=== PATIENT | male | born 1950 | race Caucasian/White ===

== ENCOUNTER 2016-06-24 22:48 | Observation (INO) | payer MEDICARE ==
[~2016-06-24] VITALS: Ht 175.3 cm; Wt 65.0 kg
[~2016-06-24 22:48] MED LIST: ADVAI250I PO; ALBU2.5I INH; ALBU8I INH; AMBI10TA PO; EPIP0.3I IM; FLON0.053; MEDR4PAK3 PO; OXYC10TA8 PO; SOMA350T PO; VENTAER INH; WELL150T PO; XANA1TAB6 PO
[2016-06-24 22:54] VITALS: BP 163/105; PULSE 129; RESP 30; TEMP 98.7; O2SAT 99
[2016-06-24] MEDS ORDERED: diphenhydrAMINE HCL 50 MG/ML VIAL ONE (22:56)
[2016-06-24] MEDS ORDERED: EPINEPHrine HCL (1:1000) 1 MG/ML VIAL ONE (22:56)
[2016-06-24] MEDS ORDERED: EPINEPHrine HCL (1:1000) 1 MG/ML VIAL IM ONE (23:00)
[2016-06-24] MEDS ORDERED: diphenhydrAMINE HCL 50 MG/ML VIAL IVP ONE (23:00)
[2016-06-24] MEDS ORDERED: SODIUM CHLORIDE 0.9% FLUSH 5 ML FLUSH IVF PRN ×2 (23:00)
[2016-06-24] MEDS ORDERED: RESP: ALBUTEROL 2.5 MG/IPRATROPIUM 0.5 MG NEB (SCH) INH ONE (23:00)
[2016-06-24] MEDS ORDERED: FAMOTIDINE 20 MG/2 ML VIAL IV PUSH ONE (23:00)
[2016-06-24 23:11] VITALS: O2SAT 98
[2016-06-24 23:24] LABS: BLOOD GAS BASE EXCESS -1.6 mmol/L (-2-2); BLOOD GAS CARBOXYHEMOGLOBIN 1.6 % (0-4); BLOOD GAS HCO3 24 mmol/L (22-26); BLOOD GAS O2 HGB SATURATION 95 % (90-100); BLOOD GAS OXYGEN CONTENT 19.9 Vol % (12.0-20.0); BLOOD GAS PCO2 48 mmHg (38-42); BLOOD GAS PO2 155 mmHG (61-120); BLOOD GAS TOTAL HGB 14.7 G/DL (12.0-16.0); TEMP CORR TO 98.6
[2016-06-24 23:25] LABS: AUTOMATED NEUTROPHIL # 4.1 TH/MM3 (1.8-7.7); BASOPHIL # 0.1 TH/MM3 (0-0.2); EOSINOPHIL # 1.6 TH/MM3 (0-0.4); EOSINOPHIL % 17.8 % (0.0-4.0); HEMO FLAGS DIFF FINAL; LYMPHOCYTE # 2.6 TH/MM3 (1.0-4.8); MEAN CELL VOLUME 97.4 FL (80.0-100.0); MEAN CORPUSCULAR HEMOGLOBIN 32.6 PG (27.0-34.0); MEAN CORPUSCULAR HGB CONC 33.5 % (32.0-36.0); MONO % 8.7 % (0.0-8.0); NEUT % 44.5 % (16.0-70.0); PLATELET COUNT 226 TH/MM3 (150-450); RED BLOOD COUNT 4.41 MIL/MM3 (4.50-5.90); RED CELL DISTRIBUTION WIDTH 12.8 % (11.6-17.2); WHITE BLOOD COUNT 9.1 TH/MM3 (4.0-11.0)
[2016-06-24 23:25] LABS: CRITICAL VALUE NO; DRAW SITE RT RADIAL; LITER FLOW 4 L/M; NUMBER OF ARTERIAL PUNCTURES 2; OXYGEN DEVICE NASAL CANNULA; STAT YES; ULNAR PULSE PRESENT
[2016-06-24 23:30] VITALS: O2SAT 100
--- NOTE | 2016-06-24 23:31 | RADRPT ---
EXAM DATE/TIME: 06/24/2016 22:59 [place] COMPARISON: CHEST SINGLE AP, July 30, 2015, 17:02. INDICATIONS : Shortness of breath. MEDICAL HISTORY : Hypertension. Chronic obstructive pulmonary disease. Asthma. SURGICAL HISTORY : None. ENCOUNTER: Initial ACUITY: 1 day PAIN SCORE: 0/10 LOCATION: Bilateral chest FINDINGS: A single view of the chest demonstrates the lungs to be symmetrically aerated without evidence of mas s, infiltrate or effusion. The cardiomediastinal contours are unremarkable. [place] right scapul a. Osseous structures are intact. CONCLUSION: No acute disease. Christian Montano MD on June 24, 2016 at 23:25 Board Certified Radiologist. This report was verified electronically.
[2016-06-24 23:33] LABS: APTT (PATIENT) 23.7 SEC (24.3-30.1); PROTHROMBIN TIME - PATIENT 11.2 SEC (9.8-11.6)
[2016-06-24 23:38] LABS: ANION GAP 9 MEQ/L (5-15); BICARBONATE 28.5 MEQ/L (21.0-32.0); BLOOD UREA NITROGEN 12 MG/DL (7-18); CHLORIDE 101 MEQ/L (98-107); GLOMERULAR FILTRATION RATE 66 ML/MIN (>89); SODIUM (NA) 138 MEQ/L (136-145)
[2016-06-24 23:42] LABS: CREATINE KINASE 112 U/L (39-308)
[2016-06-24 23:45] VITALS: O2SAT 97
[2016-06-24 23:46] VITALS: BP 116/88; PULSE 108; RESP 18; O2SAT 97
[2016-06-24 23:55] LABS: CKMB 3.5 NG/ML (0.5-3.6)
[2016-06-25] VITALS (13 sets, daily range): BP systolic 101–147; BP diastolic 73–86; PULSE 74–115; RESP 16–21; TEMP 97.8–98.8; O2SAT 93–98
--- NOTE | 2016-06-25 00:04 | PD ---
HPI Chief Complaint: Respiratory Distress Time Seen by Provider: 22:59 Travel History International Travel<30 days: No Contact w/Intl Traveler<30days: No Traveled to known affect area: No History of Present Illness HPI 66yo M with PMH of COPD presents to the ED with wheezing and in respiratory distress. [facility] had given solumedrol and albuterol neb x3. Pt is tachypneic and wheezing bilaterally. States it started immediately after the opossum came to his house and sprayed him. States he is allergic to them and was here on for similar complaint. Pt feels that his throat is closing but had no tongue swelling or uvula swelling on exam. He was diaphoretic and in distress but saturating at 99% on nebulizer treatment. Pt given epinephrine, diphenhydramine and famotidine since pt already received solumedrol. PFSH Past Medical History Asthma: Yes Anxiety: Yes Depression: Yes Cancer: No Cardiovascular Problems: Yes Congestive Heart Failure: No COPD: Yes Coronary Artery Disease: Yes Diabetes: No Endocrine: No Genitourinary: No Hypertension: Yes Immune Disorder: No Implanted Vascular Access Dvce: Yes Musculoskeletal: Yes Neurologic: No Psychiatric: Yes Respiratory: Yes Tetanus Vaccination: Unknown Past Surgical History Body Medical Devices: DELFINA IN LEFT LEG Other Surgery: Yes Social History Alcohol Use: Yes (beer) Tobacco Use: No (10 years ago quit) Substance Use: No Allergies-Medications (Allergen,Severity, Reaction): Coded Allergies: Penicillin (Verified Allergy, Mild, HIVES, 06/24/16) Reported Meds & Prescriptions Reported Meds & Active Scripts Active Reported Ventolin Hfa 18 GM Inh (Albuterol Sulfate) 90 Mcg/Act Aer 2 Puff INH Q4H PRN Albuterol Neb (Albuterol Sulfate) 2.5 Mg/3 Ml Neb 2.5 Mg NEB Q6HR While awake Ventolin Hfa 18 GM Inh (Albuterol Sulfate) 90 Mcg/Act Aer 2 Puff INH Q4H PRN Advair Diskus Inh (Fluticasone-Salmeterol Inh) 250-50 Mcg/Blist Aer 1 Puff INH BID Rinse mouth after use. Fluticasone Nasal [place] 50 Mcg/Act Naspr 100 Mcg EACH NARE BID 50 mcg/spray Trazodone (Trazodone HCl) 150 Mg Tab 150 Mg PO HS Flexeril (Cyclobenzaprine HCl) 5 Mg Tab 5 Mg PO TID Oxycodone (Oxycodone HCl) 10 Mg Tab 10 Mg PO Q4H PRN Montelukast (Montelukast Sodium) 10 Mg Tab 10 Mg PO HS Benazepril (Benazepril HCl) 20 Mg Tab 20 Mg PO DAILY Benzonatate 200 Mg Cap 200 Mg PO TID PRN Zolpidem (Zolpidem Tartrate) 10 Mg Tab 10 Mg PO HS PRN Xanax (Alprazolam) 1 Mg Tab 1 Mg PO QID PRN Bupropion HCl ER 24 HR (Bupropion HCl) 300 Mg Tab 300 Mg PO DAILY Review of Systems Except as stated in HPI: all other systems reviewed are Neg Physical Exam Narrative GENERAL: 66yo M in moderate distress. SKIN: Warm and dry. HEAD: Atraumatic. Normocephalic. EYES: Pupils equal and round. No scleral icterus. No injection or drainage. ENT: No tongue or uvula edema. Patent airway. NECK: Trachea midline. No JVD. CARDIOVASCULAR: Regular rate and rhythm. No murmur appreciated. RESPIRATORY: + accessory muscle use. Wheezing bilaterally diffusely. GASTROINTESTINAL: Abdomen soft, non-tender, nondistended. No rebound tenderness or guarding. MUSCULOSKELETAL: No obvious deformities. No clubbing. No cyanosis. No edema. NEUROLOGICAL: Awake and alert. No obvious cranial nerve deficits. Motor grossly within normal limits. Normal speech. PSYCHIATRIC: Appropriate mood and affect; insight and judgment normal. Data Data Last Documented VS Vital Signs Date Time Temp Pulse Resp B/P Pulse Ox O2 Delivery O2 Flow Rate FiO2 06/25/16 01:00 113 18 102/75 96 Nasal Cannula 2 06/24/16 22:54 98.7 Orders Complete Blood Count With Diff (06/24/16 22:59) Basic Metabolic Panel (Bmp) (06/24/16 22:59) Act Partial Throm Time (Ptt) (06/24/16 22:59) Prothrombin Time / Inr (Pt) (06/24/16 22:59) Ckmb (Isoenzyme) Profile (06/24/16 22:59) Troponin I (06/24/16 22:59) Arterial Blood Gas (Abg) (06/24/16 22:59) Iv Access Insert/Monitor (06/24/16 22:59) Electrocardiogram (06/24/16 22:59) Ecg Monitoring (06/24/16 22:59) Oximetry (06/24/16 22:59) Oxygen Administration (06/24/16 22:59) Chest, Single Ap (06/24/16 22:59) Sodium Chloride 0.9% Flush (Ns Flush) (06/24/16 23:00) Albuterol-Ipratropium Neb (Duoneb Neb) (06/24/16 23:00) Diphenhydramine Inj (Benadryl Inj) (06/24/16 23:00) Famotidine Inj (Pepcid Inj) (06/24/16 23:00) Sodium Chloride 0.9% Flush (Ns Flush) (06/24/16 23:00) Epinephrine (1:1000) Inj (Adrenalin (1:1 (06/24/16 23:00) Epinephrine (1:1000) Inj (Adrenalin (1:1 (06/24/16 22:56) Diphenhydramine Inj (Benadryl Inj) (06/24/16 22:56) CKMB (06/24/16 23:16) CKMB% (06/24/16 23:16) Admit Order (Ed Use Only) (06/25/16 01:18) Labs Laboratory Tests Test 06/24/16 06/24/16 23:14 23:16 Blood Gas Puncture Site RT RADIAL Blood Gas Patient Temperature 98.6 Blood Gas HCO3 24 mmol/L Blood Gas Base Excess -1.6 mmol/L Blood Gas Oxygen Saturation 95 % Arterial Blood pH 7.32 Arterial Blood Partial 48 mmHg Pressure CO2 Arterial Blood Partial 155 mmHG Pressure O2 Arterial Blood Oxygen Content 19.9 Vol % Arterial Blood 1.6 % Carboxyhemoglobin Arterial Blood Methemoglobin 2.0 % Blood Gas Hemoglobin 14.7 G/DL Oxygen Delivery Device NASAL CANNULA Blood Gas Liter Flow 4 L/M White Blood Count 9.1 TH/MM3 Red Blood Count 4.41 MIL/MM3 Hemoglobin 14.4 GM/DL Hematocrit 43.0 % Mean Corpuscular Volume 97.4 FL Mean Corpuscular Hemoglobin 32.6 PG Mean Corpuscular Hemoglobin 33.5 % Concent Red Cell Distribution Width 12.8 % Platelet Count 226 TH/MM3 Mean Platelet Volume 7.8 FL Neutrophils (%) (Auto) 44.5 % Lymphocytes (%) (Auto) 28.0 % Monocytes (%) (Auto) 8.7 % Eosinophils (%) (Auto) 17.8 % Basophils (%) (Auto) 1.0 % Neutrophils # (Auto) 4.1 TH/MM3 Lymphocytes # (Auto) 2.6 TH/MM3 Monocytes # (Auto) 0.8 TH/MM3 Eosinophils # (Auto) 1.6 TH/MM3 Basophils # (Auto) 0.1 TH/MM3 CBC Comment DIFF FINAL Differential Comment Prothrombin Time 11.2 SEC Prothromb Time International 1.0 RATIO Ratio Activated Partial 23.7 SEC Thromboplast Time Sodium Level 138 MEQ/L Potassium Level 4.0 MEQ/L Chloride Level 101 MEQ/L Carbon Dioxide Level 28.5 MEQ/L Anion Gap 9 MEQ/L Blood Urea Nitrogen 12 MG/DL Creatinine 1.11 MG/DL Estimat Glomerular Filtration 66 ML/MIN Rate Random Glucose 125 MG/DL Calcium Level 8.4 MG/DL Total Creatine Kinase 112 U/L Creatine Kinase MB 3.5 NG/ML Troponin I 0.03 NG/ML [facility] Medical Decision Making Medical Screen Exam Complete: Yes Emergency Medical Condition: Yes Differential Diagnosis Anaphylaxis vs. COPD exacerbation vs. PNA vs. ACS Narrative Course 66yo M with wheezing and respiratory distress. 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 Pt given nebulizer treatment and solumedrol by [facility]. Pt stated he felt tightening of his throat so epinephrine 0.3mg IM given as well as diphenhydramine and famotidine. Physical exam did not demonstrate any tongue or throat edema. Pt reevaluated after medications and feels better. States his throat does not feel tight anymore. Wheezing has improved but still with mild wheezing. Pt is no longer tachypneic. Discussed with Dr. Bay and accepted for observation for anaphylaxis. Critical Care Narrative Aggregate critical care time was 35 minutes. Time to perform other separately billable procedures was not included in the critical care time. My time did not include minutes spent treating any other patients simultaneously or on activities that did not directly contribute to the patient's treatment. The services I provided to this patient were to treat and/or prevent clinically significant deterioration that could result in: airway compromise and . I provided critical care services requiring my management, as noted below: Chart data review, documentation time, medication orders and management, vital sign assessments/reviewing monitor data, ordering and reviewing lab tests, ordering and interpreting/reviewing x-rays and diagnostic studies, care of the patient and discussion of the patient with the admitting physicians. Diagnosis Primary Impression: Anaphylactic reaction Qualified Code: T78.2XXA - Anaphylactic reaction, initial encounter Admitting Information Admitting Physician Requests: Observation Anat Escalante DO Jun 25, 2016 00:04
[2016-06-25] MEDS ORDERED: methylPREDNISolone SOD SUCC 40 MG/1 ML VIAL IV PUSH PRN (01:30)
[2016-06-25] MEDS ORDERED: SODIUM CHLORIDE 0.9% FLUSH 5 ML FLUSH FLUSH PRN (01:30)
[2016-06-25] MEDS ORDERED: NALOXONE HCL 0.4 MG/ML AMP IV PRN (01:30)
[2016-06-25] MEDS ORDERED: RESP: ALBUTEROL 2.5 MG/IPRATROPIUM 0.5 MG NEB (PRN) NEB (01:30)
[2016-06-25] MEDS ORDERED: diphenhydrAMINE HCL 50 MG/ML VIAL IV PUSH PRN (01:30)
[2016-06-25] MEDS ORDERED: BENA20TA PO (03:27)
[2016-06-25] MEDS ORDERED: FLUT50SP EACH NARE (03:27)
[2016-06-25] MEDS ORDERED: ADVA250A INH (03:27)
[2016-06-25] MEDS ORDERED: ZOLP10TA3 PO (03:27)
[2016-06-25] MEDS ORDERED: MONT10TA4 PO (03:27)
[2016-06-25] MEDS ORDERED: ALBU0.08 NEB (03:27)
[2016-06-25] MEDS ORDERED: TRAZ150T75 PO (03:27)
[2016-06-25] MEDS ORDERED: XANA1TAB2 PO (03:27)
[2016-06-25] MEDS ORDERED: BENZ1CAP34 PO (03:27)
[2016-06-25] MEDS ORDERED: VENTAER INH ×2 (03:27)
[2016-06-25] MEDS ORDERED: OXYC-395 PO (03:27)
[2016-06-25] MEDS ORDERED: CYCL5TAB PO (03:27)
[2016-06-25] MEDS ORDERED: BUPR300T PO (03:27)
[2016-06-25] MEDS ORDERED: ALPRAZolam 1 MG TAB PO ONE (04:45)
[2016-06-25] MEDS ORDERED: BENZONATATE 100 MG CAP PO PRN (08:30)
[2016-06-25] MEDS ORDERED: ZOLPIDEM TARTRATE 10 MG TAB PO PRN (08:30)
--- NOTE | 2016-06-25 08:30 | HHI.HP ---
[facility] Primary Care Physician Non-Staff Admission Diagnosis Anaphylaxis Diagnoses: Chief Complaint: Shortness of breath Travel History International Travel<30 Days: No Contact w/Intl Traveler <30 Da: No Traveled to Known Affected Are: No History of Present Illness 66-year-old male with a medical history significant for COPD, hypertension, anxiety brought into the emergency room by [facility] for respiratory distress and wheezing. The patient reports that his house was sprayed by a possum. He reports he has significant allergies to them. He had a similar episode on 07/30/15. On presentation he complained that his throat and tongue felt swollen. So far he has received Solu-Medrol, epinephrine, diphenhydramine and famotidine. Patient is currently on 2 L nasal cannula. He reports that his breathing is still not at baseline. He has a spasmodic cough and continues to have wheezing. He admits that his throat is feeling better. Currently he is complaining of severe pain all over. He takes narcotics chronically for joint pain. He also complained of severe anxiety and is requesting that we restart his anxiolytics. Review of Systems Constitutional: DENIES: Fever, Chills Endocrine: DENIES: Polyuria Eyes: DENIES: Diplopia Ears, nose, mouth, throat: COMPLAINS OF: Throat pain, DENIES: Hoarseness Respiratory: COMPLAINS OF: Cough, Wheezing, Shortness of breath, DENIES: Sputum production Cardiovascular: DENIES: Chest pain, Syncope Gastrointestinal: DENIES: Nausea, Vomiting Genitourinary: DENIES: Dysuria Musculoskeletal: COMPLAINS OF: Joint pain, Muscle aches Neurologic: DENIES: Headache Psychiatric: COMPLAINS OF: Anxiety Past Family Social History Past Medical History Hypertension COPD Anxiety Depression Past Surgical History Shoulder and leg surgery. - Leg surgery, kate placement after fracture - Shoulder surgery Reported Medications Reported Meds & Active Scripts Active Reported Ventolin Hfa 18 GM Inh (Albuterol Sulfate) 90 Mcg/Act Aer 2 Puff INH Q4H PRN Albuterol Neb (Albuterol Sulfate) 2.5 Mg/3 Ml Neb 2.5 Mg NEB Q6HR While awake Ventolin Hfa 18 GM Inh (Albuterol Sulfate) 90 Mcg/Act Aer 2 Puff INH Q4H PRN Advair Diskus Inh (Fluticasone-Salmeterol Inh) 250-50 Mcg/Blist Aer 1 Puff INH BID Rinse mouth after use. Fluticasone Nasal [place] 50 Mcg/Act Naspr 100 Mcg EACH NARE BID 50 mcg/spray Trazodone (Trazodone HCl) 150 Mg Tab 150 Mg PO HS Flexeril (Cyclobenzaprine HCl) 5 Mg Tab 5 Mg PO TID Oxycodone (Oxycodone HCl) 10 Mg Tab 10 Mg PO Q4H PRN Montelukast (Montelukast Sodium) 10 Mg Tab 10 Mg PO HS Benazepril (Benazepril HCl) 20 Mg Tab 20 Mg PO DAILY Benzonatate 200 Mg Cap 200 Mg PO TID PRN Zolpidem (Zolpidem Tartrate) 10 Mg Tab 10 Mg PO HS PRN Xanax (Alprazolam) 1 Mg Tab 1 Mg PO QID PRN Bupropion HCl ER 24 HR (Bupropion HCl) 300 Mg Tab 300 Mg PO DAILY Allergies: Coded Allergies: Penicillin (Verified Allergy, Mild, HIVES, 06/24/16) Family History Reviewed and noncontributory. Social History Patient reports that he quit smoking 10 years ago. He admits to drinking 2-3 beers daily. Physical Exam Vital Signs Vital Signs Date Time Temp Pulse Resp B/P Pulse Ox O2 Delivery O2 Flow Rate FiO2 06/25/16 08:25 98.1 108 16 147/78 93 06/25/16 08:16 98.1 108 16 147/78 93 06/25/16 07:23 98.1 108 16 147/78 93 06/25/16 04:50 110 06/25/16 03:30 98.8 74 21 141/78 97 06/25/16 02:52 84 18 101/75 96 Nasal Cannula 2 06/25/16 01:00 113 18 102/75 96 Nasal Cannula 2 06/25/16 00:00 106 18 117/86 95 Nasal Cannula 2 06/24/16 23:46 108 18 116/88 97 Nasal Cannula 2 06/24/16 23:45 97 Nasal Cannula 2 06/24/16 23:45 97 Nasal Cannula 2 06/24/16 23:30 100 2.00 06/24/16 23:11 98 Nasal Cannula 4.00 06/24/16 22:59 125 30 100 Nasal Cannula 2 06/24/16 22:54 98.7 129 30 163/105 99 Physical Exam GENERAL: Elderly male, visibly anxious. Spasmodic cough SKIN: No rashes, ecchymoses or lesions. Cool and dry. HEAD: Atraumatic. Normocephalic. No temporal or scalp tenderness. EYES: Pupils equal round and reactive. Extraocular motions intact. No scleral icterus. No injection or drainage. ENT: Nose without bleeding, purulent drainage or septal hematoma. Throat without erythema, tonsillar hypertrophy or exudate. Uvula midline. Airway patent. NECK: Trachea midline. No JVD or lymphadenopathy. Supple, nontender, no meningeal signs. CARDIOVASCULAR: Regular rate and rhythm without murmurs, gallops, or rubs. RESPIRATORY: Spasmodic cough. Air movement is fair. Diffuse expiratory wheezing bilaterally. GASTROINTESTINAL: Abdomen soft, non-tender, nondistended. No hepato-splenomegaly , or palpable masses. No guarding. MUSCULOSKELETAL: Extremities without clubbing, cyanosis, or edema. No joint tenderness, effusion, or edema noted. No calf tenderness. Negative Homans sign bilaterally. NEUROLOGICAL: Awake and alert. Cranial nerves II through XII intact. Motor and sensory grossly within normal limits. Five out of 5 muscle strength in all muscle groups. Normal speech. Laboratory Laboratory Tests Test 06/24/16 06/24/16 23:14 23:16 Blood Gas Puncture Site RT RADIAL Blood Gas Patient Temperature 98.6 Blood Gas HCO3 24 Blood Gas Base Excess -1.6 Blood Gas Oxygen Saturation 95 Arterial Blood pH 7.32 Arterial Blood Partial 48 Pressure CO2 Arterial Blood Partial 155 Pressure O2 Arterial Blood Oxygen Content 19.9 Arterial Blood 1.6 Carboxyhemoglobin Arterial Blood Methemoglobin 2.0 Blood Gas Hemoglobin 14.7 Oxygen Delivery Device NASAL CANNULA Blood Gas Liter Flow 4 White Blood Count 9.1 Red Blood Count 4.41 Hemoglobin 14.4 Hematocrit 43.0 Mean Corpuscular Volume 97.4 Mean Corpuscular Hemoglobin 32.6 Mean Corpuscular Hemoglobin 33.5 Concent Red Cell Distribution Width 12.8 Platelet Count 226 Mean Platelet Volume 7.8 Neutrophils (%) (Auto) 44.5 Lymphocytes (%) (Auto) 28.0 Monocytes (%) (Auto) 8.7 Eosinophils (%) (Auto) 17.8 Basophils (%) (Auto) 1.0 Neutrophils # (Auto) 4.1 Lymphocytes # (Auto) 2.6 Monocytes # (Auto) 0.8 Eosinophils # (Auto) 1.6 Basophils # (Auto) 0.1 CBC Comment DIFF FINAL Differential Comment Prothrombin Time 11.2 Prothromb Time International 1.0 Ratio Activated Partial 23.7 Thromboplast Time Sodium Level 138 Potassium Level 4.0 Chloride Level 101 Carbon Dioxide Level 28.5 Anion Gap 9 Blood Urea Nitrogen 12 Creatinine 1.11 Estimat Glomerular Filtration 66 Rate Random Glucose 125 Calcium Level 8.4 Total Creatine Kinase 112 Creatine Kinase MB 3.5 Troponin I 0.03 Result Diagram: 06/24/166 06/24/162315 Imaging Last Impressions Chest X-Ray 06/24/162258 Signed Impressions: Service Date/Time: Friday, June 24, 2016 22:59 - CONCLUSION: No acute disease. Christian Montano MD Assessment and Plan Problem List: (1) Acute respiratory failure ICD Code: J96.00 Status: Acute (2) Hypertension ICD Code: I10 Status: Acute (3) Anxiety ICD Code: F41.9 Status: Acute Assessment and Plan 66-year-old male with: Acute respiratory failure secondary to anaphylactic reaction: Patient reports he was sprayed by a possum. Patient had a similar event with the same result in July of last year. He is still wheezing with a spasmodic cough on 2 L nasal cannula. - Will schedule Solu-Medrol. - Breathing treatment. Benadryl as needed - Continue supportive care. Anxiety: Patient appear to be very anxious. May be contributing to above symptoms as well. - Resume home dose PRN Xanax. Hypertension: Continue home dose antihypertensives. Chronic pain: Resume home dose pain medications. Discussed Condition With Skinny Noonan MD Jun 25, 2016 08:30
[2016-06-25] MEDS: SODIUM CHLORIDE 0.9% FLUSH 5 ML FLUSH FLUSH SCH ×2 (09:00→21:03)
[2016-06-25] MEDS: buPROPion HCL 150 MG SUSTAINED RELEASE TAB PO SCH ×2 (09:32→21:03)
[2016-06-25] MEDS: CYCLOBENZAPRINE HCL 10 MG TAB PO SCH ×3 (09:34→17:34)
[2016-06-25] MEDS: LISINOPRIL 20 MG TAB PO SCH (09:34)
[2016-06-25] MEDS: RESP: ALBUTEROL 2.5 MG/IPRATROPIUM 0.5 MG NEB (SCH) NEB ×4 (09:35→23:27)
[2016-06-25] MEDS: ALPRAZolam 1 MG TAB PO PRN ×2 (10:52→16:13)
[2016-06-25] MEDS: BUDESONIDE-FORMOTEROL 160/4.5 MCG INHALER INH SCH ×2 (10:52→21:02)
[2016-06-25] MEDS: FLUTICASONE PROPIONATE 50 MCG/ACT 16 GM NASAL SPRAY EACH NARE SCH ×2 (10:53→21:02)
[2016-06-25] MEDS: methylPREDNISolone SOD SUCC 40 MG/1 ML VIAL IV PUSH SCH ×2 (12:44→17:36)
--- NOTE | 2016-06-25 16:36 | EKG ---
Date Performed: 06/24/2016 Time Performed: 22:53:49 PTAGE: 66 years EKG: Indeterminate rhythm strictly based on wandering artifact. Consider anteroseptal NC-age und eterminate. ABNORMAL ECG PREVIOUS TRACING : 07/30/2015 17.06 DOCTOR: Ananth Miranda Interpretating Date/Time 06/25/2016 16:34:30
--- NOTE | 2016-06-25 16:38 | EKG ---
Date Performed: 06/25/2016 Time Performed: 00:24:46 PTAGE: 66 years EKG: SINUS TACHYCARDIA LOW QRS VOLTAGE Consider anteroseptal PA-age underterminate. ABNORMAL ECG PREVIOUS TRACING : 06/24/2016 22.53 DOCTOR: Ananth Miranda Interpretating Date/Time 06/25/2016 16:36:04
[2016-06-25] MEDS ORDERED: MONTELUKAST SODIUM 10 MG TAB PO SCH (21:00)
[2016-06-26] VITALS (7 sets, daily range): BP systolic 118–132; BP diastolic 82–98; PULSE 106–114; RESP 18–20; TEMP 97.9–98.4; O2SAT 96–99
[2016-06-26] MEDS: ALPRAZolam 1 MG TAB PO PRN ×2 (00:24→09:03)
[2016-06-26] MEDS: methylPREDNISolone SOD SUCC 40 MG/1 ML VIAL IV PUSH SCH ×2 (00:25→06:29)
[2016-06-26] MEDS: RESP: ALBUTEROL 2.5 MG/IPRATROPIUM 0.5 MG NEB (SCH) NEB ×3 (03:53→11:21)
--- NOTE | 2016-06-26 08:37 | HHI.PR ---
Subjective Remarks Patient reports that his breathing improved. On room air. No chest pain. Patient still visibly anxious. Objective Vitals Vital Signs Date Time Temp Pulse Resp B/P Pulse Ox O2 Delivery O2 Flow Rate FiO2 06/26/16 07:55 97.9 111 18 132/98 99 06/26/16 04:32 98.4 108 20 129/82 99 06/26/16 01:07 98.4 106 20 118/84 96 06/26/16 00:12 110 06/25/16 21:51 98.5 115 20 116/84 93 06/25/16 19:47 95 21 06/25/16 18:35 20 06/25/16 16:10 97.8 108 18 108/77 98 06/25/16 12:44 98.1 106 18 109/73 96 I/O 06/25/16 06/25/16 06/25/16 06/26/16 06/26/16 06/26/16 07:00 15:00 23:00 07:00 15:00 23:00 Intake Total 0 ml 900 ml Output Total 100 ml 300 ml Balance -100 ml 900 ml -300 ml Intake Oral 0 ml 900 ml Output Urine Total 100 ml 300 ml # Voids 1 5 # Bowel Movements 0 Result Diagram: 06/24/16 2316 06/24/162315 Imaging Last Impressions Chest X-Ray 06/24/16 9015 Signed Impressions: Service Date/Time: Friday, June 24, 2016 22:59 - CONCLUSION: No acute disease. Christian Montano MD Objective Remarks GENERAL: This is a well-nourished, well-developed patient, in no apparent distress. CARDIOVASCULAR: Normal rate and regular rhythm without murmurs, gallops, or rubs. RESPIRATORY: Air movement improved compared to yesterday. Mostly clear to auscultation bilaterally except for faint expiratory wheezing. GASTROINTESTINAL: Abdomen soft, non-tender, non-distended. Normal active bowel sounds MUSCULOSKELETAL: Extremities without cyanosis, or edema. NEURO: Alert & Oriented x4 to person, place, time, situation. Moves all ext x4 PSYCH: Anxious. A/P Problem List: (1) Acute respiratory failure ICD Code: J96.00 Status: Acute (2) Hypertension ICD Code: I10 Status: Acute (3) Anxiety ICD Code: F41.9 Status: Acute Assessment and Plan 66-year-old male with: Acute respiratory failure secondary to anaphylactic reaction: Patient reports he was sprayed by a possum. Patient had a similar event with the same result in July of last year. Patient improved with Solu-Medrol and breathing treatment. He is discharged home on a prednisone taper. He is advised to continue using his regular COPD inhalers. Anxiety: Patient appear to be very anxious. May be contributing to above symptoms as well. -Continue home dose PRN Xanax. Hypertension: Continue home dose antihypertensives. Chronic pain: Resume home dose pain medications. Discharge home in good condition Follow-up with PCP as scheduled Diet: Heart healthy Activity: Regular as tolerated Meds: See med rec. Skinny Carroll MD Jun 26, 2016 08:37
[2016-06-26] MEDS ORDERED: PRED20 PO (08:41)
[2016-06-26] MEDS ORDERED: VENTAER INH (08:41)
--- NOTE | 2016-06-26 08:41 | HHI.DCPOC ---
Discharge Care Plan Diagnosis: (1) Acute respiratory failure (2) Anaphylactic reaction (3) Hypertension (4) Anxiety Goals to Promote Your Health * To prevent worsening of your condition and complications * To maintain your health at the optimal level Directions to Meet Your Goals Take your medications as prescribed Follow your dietary instruction Follow activity as directed Keep your appointments as scheduled Take your immunizations and boosters as scheduled If your symptoms worsen call your PCP, if no PCP go to Urgent Care Center or Emergency Room Smoking is Dangerous to Your Health. Avoid second hand smoke Call the 24-hour hour crisis hotline for domestic abuse at Skinny Carroll MD Jun 26, 2016 08:41
[2016-06-26] MEDS: BUDESONIDE-FORMOTEROL 160/4.5 MCG INHALER INH SCH (08:56)
[2016-06-26] MEDS: FLUTICASONE PROPIONATE 50 MCG/ACT 16 GM NASAL SPRAY EACH NARE SCH (08:56)
[2016-06-26] MEDS: buPROPion HCL 150 MG SUSTAINED RELEASE TAB PO SCH (08:57)
[2016-06-26] MEDS: LISINOPRIL 20 MG TAB PO SCH (08:57)
[2016-06-26] MEDS: CYCLOBENZAPRINE HCL 10 MG TAB PO SCH (08:58)
[2016-06-26] MEDS: SODIUM CHLORIDE 0.9% FLUSH 5 ML FLUSH FLUSH SCH (08:58)
== END 2016-06-26 13:55 | disposition home or self-care (01) ==
LOC: NEPE 22:48 → NEDA 06-25 01:20 → NEPFCDU 06-25 03:16
PROVIDERS: ADMIT Family Medicine; ATTEND Family Medicine
DX: J96.00 Acute respiratory failure, unspecified whether with hypoxia or hypercapnia (principal); T78.2XXA Anaphylactic shock, unspecified, initial encounter; J44.9 Chronic obstructive pulmonary disease, unspecified; J45.909 Unspecified asthma, uncomplicated; I10 Essential (primary) hypertension; I25.10 Atherosclerotic heart disease of native coronary artery without angina pectoris; F41.9 Anxiety disorder, unspecified; M25.50 Pain in unspecified joint; G89.29 Other chronic pain; Z87.891 Personal history of nicotine dependence
CPT/HCPCS: 36600; 71010; 80048; 82550; 82552; 82805; 84484; 85025; 85610; 85730; 93005; 94640; 94664; 96374; 96375; 97163; 99291; G0378; G8987; G8988; J0171; J1200; J2920

== ENCOUNTER 2016-09-12 22:24 | Inpatient (IN) | payer MEDICARE ==
[2016-09-12] VITALS (11 sets, daily range): BP systolic 89–186; BP diastolic 67–135; PULSE 95–133; RESP 14–40; TEMP 98.2; O2SAT 98–100
[~2016-09-12 22:24] MED LIST changes: +ADVA250A INH; -ADVAI250I PO; +ALBU0.08 NEB; -ALBU2.5I INH; -ALBU8I INH; -AMBI10TA PO; +BENA20TA PO; +BENZ1CAP34 PO; +BUPR300T PO; +CYCL5TAB PO; -EPIP0.3I IM; -FLON0.053; +FLUT50SP EACH NARE; -MEDR4PAK3 PO; +MONT10TA4 PO; +OXYC-395 PO; -OXYC10TA8 PO; +PRED20 PO; -SOMA350T PO; +TRAZ150T75 PO; -WELL150T PO; +XANA1TAB2 PO; -XANA1TAB6 PO; +ZOLP10TA3 PO
[2016-09-12] MEDS ORDERED: ETOMIDATE 20 MG/10 ML VIAL ONE (22:26)
[2016-09-12] MEDS ORDERED: PROPOFOL 1000 MG/100 ML INJ 100 ML ONE (22:30)
--- NOTE | 2016-09-12 22:56 | PD ---
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 Pt states he had allergic reaction to possums and has periorbital swelling and wheezing. Pt used his own epi pen and was also given 0.3mg epi by EVAC. Pt initially saturating in the 50s in room air as per EVAC and was placed on 100% nonrebreather. Pt given duonebs, methylprednisolone and magnesium sulfate by EVAC but was still very short of breath and tachypneic. Pt unable to answer more questions except for "just put me out". PFSH Past Medical History Asthma: Yes Blood Disorders: No Anxiety: Yes Depression: Yes Heart Rhythm Problems: No Cancer: No Cardiovascular Problems: Yes Chest Pain: Yes Congestive Heart Failure: No COPD: Yes Coronary Artery Disease: Yes Diabetes: No Endocrine: No Genitourinary: No Hypertension: Yes Immune Disorder: No Implanted Vascular Access Dvce: Yes Musculoskeletal: Yes Neurologic: No Psychiatric: Yes Reproductive: No Respiratory: Yes Tetanus Vaccination: Unknown Past Surgical History Body Medical Devices: DELFINA IN LEFT LEG Other Surgery: Yes Social History Alcohol Use: Yes (beer) Tobacco Use: No (10 years ago quit) Substance Use: No Allergies-Medications (Allergen,Severity, Reaction): Coded Allergies: Penicillin (Verified Allergy, Mild, HIVES, 09/12/16) Uncoded Allergies: Opossium (Allergy, Severe, 09/13/16) Reported Meds & Prescriptions Reported Meds & Active Scripts Active Prednisone 20 Mg Tab 20 Mg PO DIRECTED Take 60 MG daily x 4 days, then 40 MG x 4 days, then 20 MG daily x 4 days. Ventolin Hfa 18 GM Inh (Albuterol Sulfate) 90 Mcg/Act Aer 2 Puff INH Q4H PRN Reported Albuterol Neb (Albuterol Sulfate) 2.5 Mg/3 Ml Neb 2.5 Mg NEB Q6HR While awake Advair Diskus Inh (Fluticasone-Salmeterol Inh) 250-50 Mcg/Blist Aer 1 Puff INH BID Rinse mouth after use. Fluticasone Nasal [place] 50 Mcg/Act Naspr 100 Mcg EACH NARE BID 50 mcg/spray Trazodone (Trazodone HCl) 150 Mg Tab 150 Mg PO HS Flexeril (Cyclobenzaprine HCl) 5 Mg Tab 5 Mg PO TID Oxycodone (Oxycodone HCl) 10 Mg Tab 10 Mg PO Q4H PRN Montelukast (Montelukast Sodium) 10 Mg Tab 10 Mg PO HS Benazepril (Benazepril HCl) 20 Mg Tab 20 Mg PO DAILY Benzonatate 200 Mg Cap 200 Mg PO TID PRN Zolpidem (Zolpidem Tartrate) 10 Mg Tab 10 Mg PO HS PRN Xanax (Alprazolam) 1 Mg Tab 1 Mg PO QID PRN Bupropion HCl ER 24 HR (Bupropion HCl) 300 Mg Tab 300 Mg PO DAILY Review of Systems Except as stated in HPI: all other systems reviewed are Neg Physical Exam Narrative GENERAL: 66yo M in severe distress. SKIN: Focused skin assessment warm/dry. HEAD: Atraumatic. Normocephalic. EYES: Periorbital swelling. ENT: No tongue or uvula swelling. NECK: Trachea midline. No JVD. CARDIOVASCULAR: Tachycardic. No murmur appreciated. RESPIRATORY: + accessory muscle use. Wheezing bilaterally. Poor air entry. GASTROINTESTINAL: Abdomen soft, non-tender, nondistended. Hepatic and splenic margins not palpable. MUSCULOSKELETAL: No obvious deformities. No clubbing. No cyanosis. No edema. NEUROLOGICAL: Awake and in distress. Able opens eyes to verbal stimuli but is very tired. Data Data Last Documented VS Vital Signs Date Time Temp Pulse Resp B/P Pulse Ox O2 Delivery O2 Flow Rate FiO2 09/13/16 00:20 104 14 130/98 100 Ventilator 50 09/12/16 23:26 98.2 09/12/16 22:36 15 Orders Etomidate Inj (Amidate Inj) (09/12/16 22:26) Propofol 1000 Mg/100 Ml Inj (Diprivan 10 (09/12/16 22:30) Chest, Single Ap (09/12/16 ) Complete Blood Count With Diff (09/12/16 22:46) Basic Metabolic Panel (Bmp) (09/12/16 22:46) Prothrombin Time / Inr (Pt) (09/12/16 22:46) Act Partial Throm Time (Ptt) (09/12/16 22:46) Blood Culture (09/12/16 22:46) Lactic Acid Sepsis Protocol (09/12/16 22:46) Sodium Chloride 0.9% Flush (Ns Flush) (09/12/16 23:00) Methylprednisolone So Succ Inj (Solumedr (09/12/16 23:00) Albuterol-Ipratropium Neb (Duoneb Neb) (09/12/16 23:00) Propofol 1000 Mg/100 Ml Inj (Diprivan 10 (09/12/16 23:00) ^ Infusion (09/12/16 22:49) RASS (09/12/16 22:49) Neurological Rass Scale TYLER.Q2H (09/12/16 22:49) Greg-Gastric Tube Insert/Mon (09/12/16 22:49) Urinary Catheter Insert/Apply (09/12/16 22:49) Fentanyl Drip (Fentanyl Drip) (09/12/16 23:59) Etomidate Inj (Amidate Inj) (09/13/16 00:15) Succinylcholine Inj (Quelicin Inj) (09/13/16 00:15) Succinylcholine Inj (Quelicin Inj) (09/13/16 00:15) Fentanyl Drip (Fentanyl Drip) (09/13/16 00:15) Sodium Chlor 0.9% 1000 Ml Inj (Ns 1000 M (09/13/16 00:15) Equip, Iv Pump Triple Use Of (09/13/16 00:04) Arterial Blood Gas (Abg) (09/13/16 ) Admit Order (Ed Use Only) (09/13/16 00:26) Labs Laboratory Tests Test 09/12/16 22:55 White Blood Count 9.1 TH/MM3 Red Blood Count 4.21 MIL/MM3 Hemoglobin 14.2 GM/DL Hematocrit 41.3 % Mean Corpuscular Volume 98.1 FL Mean Corpuscular Hemoglobin 33.7 PG Mean Corpuscular Hemoglobin 34.4 % Concent Red Cell Distribution Width 13.0 % Platelet Count 277 TH/MM3 Mean Platelet Volume 7.8 FL Neutrophils (%) (Auto) 41.8 % Lymphocytes (%) (Auto) 30.3 % Monocytes (%) (Auto) 10.3 % Eosinophils (%) (Auto) 16.3 % Basophils (%) (Auto) 1.3 % Neutrophils # (Auto) 3.8 TH/MM3 Lymphocytes # (Auto) 2.8 TH/MM3 Monocytes # (Auto) 0.9 TH/MM3 Eosinophils # (Auto) 1.5 TH/MM3 Basophils # (Auto) 0.1 TH/MM3 CBC Comment DIFF FINAL Differential Comment Prothrombin Time 11.2 SEC Prothromb Time International 1.0 RATIO Ratio Activated Partial 22.8 SEC Thromboplast Time Sodium Level 135 MEQ/L Potassium Level 4.1 MEQ/L Chloride Level 99 MEQ/L Carbon Dioxide Level 26.2 MEQ/L Anion Gap 10 MEQ/L Blood Urea Nitrogen 9 MG/DL Creatinine 0.95 MG/DL Estimat Glomerular Filtration 79 ML/MIN Rate Random Glucose 142 MG/DL Calcium Level 8.5 MG/DL Lactic Acid Level 2.2 mmol/L Total Bilirubin 0.3 MG/DL Direct Bilirubin 0.1 MG/DL Indirect Bilirubin 0.2 MG/DL Aspartate Amino Transf 25 U/L (AST/SGOT) Alanine Aminotransferase 28 U/L (ALT/SGPT) Alkaline Phosphatase 63 U/L Total Protein 7.0 GM/DL Albumin 4.0 GM/DL MDM Medical Decision Making Medical Screen Exam Complete: Yes Emergency Medical Condition: Yes Interpretation(s) Last Impressions Chest X-Ray 09/12/16 0000 Signed Impressions: Service Date/Time: August 22:58 - CONCLUSION: Endotracheal tube tip measures approximately 7 cm from the olga. No acute pulmonary abnormality is visualized. Kenny Tong MD Differential Diagnosis Anaphylaxis vs. Acute hypoxic respiratory failure Narrative Course 66yo M with known allergies to possums here with wheezing, hypoxemia and periorbital swelling after supposed encounter with possum. I have seen this patient before for his reaction to possum but have never seen him in such distress. Pt emergently intubated and duonebs ordered. Pt is tachycardic but has had epi x2 and duonebs. Pt is not hypotensive. CXR showed ET tube placement and no acute disease. Labs reviewed, CBC and BMP unremarkable. Lactic acid mildly elevated at 2.2. Pt initially placed on propofol drip for sedation but was still agitated and bp was dropping so switched to fentanyl and versed drip. Discussed with Dr. Lu and accepted to the ICU. Critical Care Narrative Aggregate critical care time was 50 minutes. Time to perform other separately billable procedures was not included int he critical care time. My time did not include minutes spent treating any other patients simultaneously or on activities that did not directly contribute to the patient's treatment. The services I provided to this patient were to treat and/or prevent clinically significant deterioration that could result in: respiratory arrest or . I provided critical care services requiring my management, as noted below: Chart data review, documentation time, medication orders and management, vital sign assessments/reviewing monitor data, ordering and reviewing lab tests, ordering and interpreting/reviewing x-rays and diagnostic studies, care of the patient and discussion of the patient with the admitting physicians. Procedures Procedure Narrative The patient was put in optimal position for the procedure. Rapid sequence intubation was initiated by me using 20 milligrams of etomidate IV and 100 milligrams of succinylcholine IV. The patient was intubated with a 8.0 cuffed endotracheal tube. Tube placement was confirmed by visualization of the tube and balloon passing through the cords, capnometry and subsequent chest x-ray. Breath sounds were equal and well aerated bilaterally postintubation. No breath sounds over stomach. Patient tolerated procedure well. Diagnosis Primary Impression: Anaphylactic reaction Qualified Code: T78.2XXA - Anaphylactic reaction, initial encounter Admitting Information Admitting Physician Requests: it Anat Escalante DO Sep 12, 2016 22:56
[2016-09-12] MEDS ORDERED: PROPOFOL 1000 MG/100 ML INJ 100 ML IV SCH (23:00)
[2016-09-12] MEDS ORDERED: methylPREDNISolone SOD SUCC 125 MG/2 ML VIAL IVP ONE (23:00)
[2016-09-12] MEDS ORDERED: SODIUM CHLORIDE 0.9% FLUSH 10 ML FLUSH IVF PRN (23:00)
[2016-09-12] MEDS ORDERED: RESP: ALBUTEROL 2.5 MG/IPRATROPIUM 0.5 MG NEB (SCH) INH (23:00)
[2016-09-12 23:08] LABS: AUTOMATED NEUTROPHIL # 3.8 TH/MM3 (1.8-7.7); BASOPHIL # 0.1 TH/MM3 (0-0.2); BASOPHIL % 1.3 % (0.0-2.0); EOSINOPHIL # 1.5 TH/MM3 (0-0.4); EOSINOPHIL % 16.3 % (0.0-4.0); HEMATOCRIT 41.3 % (39.0-51.0); HEMO FLAGS DIFF FINAL; LYMPH % 30.3 % (9.0-44.0); LYMPHOCYTE # 2.8 TH/MM3 (1.0-4.8); MEAN CELL VOLUME 98.1 FL (80.0-100.0); MEAN CORPUSCULAR HEMOGLOBIN 33.7 PG (27.0-34.0); MEAN CORPUSCULAR HGB CONC 34.4 % (32.0-36.0); MONO % 10.3 % (0.0-8.0); NEUT % 41.8 % (16.0-70.0); PLATELET COUNT 277 TH/MM3 (150-450); RED BLOOD COUNT 4.21 MIL/MM3 (4.50-5.90); WHITE BLOOD COUNT 9.1 TH/MM3 (4.0-11.0)
[2016-09-12 23:21] LABS: APTT (PATIENT) 22.8 SEC (24.3-30.1); PROTHROMBIN TIME - PATIENT 11.2 SEC (9.8-11.6)
[2016-09-12 23:23] LABS: BICARBONATE 26.2 MEQ/L (21.0-32.0); POTASSIUM 4.1 MEQ/L (3.5-5.1)
--- NOTE | 2016-09-12 23:38 | RADRPT ---
EXAM DATE/TIME: 09/12/2016 22:58 [facility] COMPARISON: CHEST SINGLE AP, July 30, 2015, 17:02. CT PULMONARY ANGIOGRAM, June 05, 2015, 9:24. CHEST S VALENTIN AP, June 24, 2016, 22:59. INDICATIONS : Post intubation. MEDICAL HISTORY : Hypertension. Chronic obstructive pulmonary disease. Asthma. SURGICAL HISTORY : None. ENCOUNTER: Initial ACUITY: 1 day PAIN SCORE: Non-responsive. LOCATION: Bilateral chest FINDINGS: 2 portable AP supine views of the chest demonstrate a normal-sized cardiac silhouette. The endotrache al tube tip measures approximately 7 cm from the olga. Nasogastric tube is looped in the stomach. L ungs are mildly hyperinflated. There is a stable 10 mm cirrhotic lesion in the right scapula. No effu yashira, consolidation, or pneumothorax is identified. CONCLUSION: Endotracheal tube tip measures approximately 7 cm from the olga. No acute pulmonary abnormality is visualized. Kenny Tong MD on September 12, 2016 at 23:32 Board Certified Radiologist. This report was verified electronically.
[2016-09-12] MEDS ORDERED: fentaNYL DRIP 250 ML ONE (23:59)
[2016-09-13] VITALS (32 sets, daily range): BP systolic 83–169; BP diastolic 54–102; PULSE 76–131; RESP 14–35; TEMP 97.5–99.1; O2SAT 92–100
[2016-09-13] MEDS ORDERED: SUCCINYLCHOLINE CHLORIDE 200 MG/10 ML VIAL IV PUSH ONE ×2 (00:15)
[2016-09-13] MEDS ORDERED: SODIUM CHLOR 0.9% 1000 ML INJ 1,000 ML IV ONE (00:15)
[2016-09-13] MEDS ORDERED: fentaNYL DRIP 250 ML IV SCH ×2 (00:15→01:15)
[2016-09-13] MEDS ORDERED: ETOMIDATE 20 MG/10 ML VIAL IV PUSH ONE (00:15)
--- NOTE | 2016-09-13 00:33 | HHI.HP ---
HPI Service Critical Care Medicine Primary Care Physician No Primary Care Physician Admission Diagnosis Anaphylaxis, COPD exacerbation Diagnosis: Travel History International Travel<30 Days: No Contact w/Intl Traveler <30 Da: No Traveled to Known Affected Are: No History of Present Illness 66-year-old male with past medical history of asthma, allergies who presents to [facility] with acute onset of SOB, wheezing. He reports exposure to possums, which has triggered reactive airways in him in the past. He developed periorbital edema. He self-administered an Epipen. Upon E VAC arrival his sats were in the 50s on room air. He was placed on nonrebreather. Per E VAC he had severe wheezing and was administered additional epinephrine 0.3 mg IM,, DuoNeb, magnesium infusion, Solu-Medrol 125 mg IV. Despite this he arrived to the emergency department in extremis with severe shortness of breath requesting intubation. He had an anterior airway and was ultimately intubated with glide scope after initial direct laryngoscopy. There was no noted airway edema per Dr. Escalante. Review of Systems ROS Limitations: Clinical Condition, Intubated Past Family Social History Allergies: Coded Allergies: Penicillin (Verified Allergy, Mild, HIVES, 09/12/16) Past Medical History Asthma/COPD Allergies Anxiety Insomnia Hypertension History of tobacco abuse Past Surgical History Unable to obtain from patient as he is currently intubated. Appears he has had right shoulder surgery and left ankle surgery Reported Medications Prednisone taper (does not appear to be in active medication) Benazepril 20 mg by mouth daily Bupropion ER 300 mg by mouth daily Trazodone 150 g by mouth daily at bedtime Benzonatate 200 g by mouth 3 times a day as needed for cough Ambien 10 mg by mouth daily at bedtime when necessary insomnia Xanax1 mg by mouth 4 times a day when necessary Albuterol Advair 250/50 micrograms 1 puff inhaled twice a day Flexeril 5 mill grams by mouth daily 3 times a day Fluticasone each near twice a day Singulair 10 g by mouth daily at bedtime Oxycodone 10 mg by mouth every 4 hours when necessary Family History Unable to obtain from patient as he is currently intubated Social History Unable to obtain from patient as he is currently intubated Review of in EMR indicates that he is a former smoker who quit 12 years ago. He smoked off and on for about 12 years Reportedly drinks 2-3 beers per day Reportedly no history of illicit drug use. Physical Exam Vital Signs Vital Signs Date Time Temp Pulse Resp B/P Pulse Ox O2 Delivery O2 Flow Rate FiO2 09/13/16 00:00 107 14 137/95 100 Ventilator 70 09/12/16 23:55 101 14 118/80 100 Ventilator 70 09/12/16 23:50 95 14 119/87 100 Ventilator 70 09/12/16 23:45 100 70 09/12/16 23:40 99 14 122/80 100 Ventilator 70 09/12/16 23:30 96 14 95/74 100 Ventilator 70 09/12/16 23:26 98.2 09/12/16 22:49 123 14 167/116 100 Ventilator 100 09/12/16 22:40 123 14 181/133 100 09/12/16 22:36 70 09/12/16 22:36 98 Non-Rebreather 15 09/12/16 22:29 133 40 186/135 98 Physical Exam Drips: Propofol 50 micrograms per KG per minute Fentanyl 150 g per hour Temp 98.2 pulse 90s-101 blood pressure 121/91 and sats 100% on mechanical ventilation ACV tidal volume 550/rate 14/P5/FiO2 50% GENERAL: Relatively thin well-developed male who is orotracheally intubated and on sedation but is restless in bed all extremities. SKIN: Warm and dry. There is eczematous rash overlying forehead. No urticaria. Scar overlying right shoulder. Scar overlying medial aspect left lower leg HEAD: Atraumatic. Normocephalic. EYES: Pupils equal and round, 3 mm and reactive bilaterally. No scleral icterus. No scleral edema. Very minimal periorbital edema (RN indicates this has improved since arrival) ENT: No nasal bleeding or discharge. Mucous membranes pink and moist. NECK: Trachea midline. No jugular venous distention. CARDIOVASCULAR: Regular, sinus on the monitor. No murmurs rubs or gallops. RESPIRATORY: Coarse rhonchorous breath sounds bilaterally with prolonged expiratory phase and wheezes. Thin secretions with suctioning. No Rales. GASTROINTESTINAL: Abdomen soft, non-tender, nondistended. Bowel sounds present : Collier in place with light yellow urine output. MUSCULOSKELETAL: Extremities without clubbing, cyanosis, or edema. NEUROLOGICAL: Awake, opens eyes intermittently, moves all extremities restlessly without focal deficit. He is on sedation currently not following commands Laboratory Laboratory Tests Test 09/12/16 22:55 White Blood Count 9.1 Red Blood Count 4.21 Hemoglobin 14.2 Hematocrit 41.3 Mean Corpuscular Volume 98.1 Mean Corpuscular Hemoglobin 33.7 Mean Corpuscular Hemoglobin 34.4 Concent Red Cell Distribution Width 13.0 Platelet Count 277 Mean Platelet Volume 7.8 Neutrophils (%) (Auto) 41.8 Lymphocytes (%) (Auto) 30.3 Monocytes (%) (Auto) 10.3 Eosinophils (%) (Auto) 16.3 Basophils (%) (Auto) 1.3 Neutrophils # (Auto) 3.8 Lymphocytes # (Auto) 2.8 Monocytes # (Auto) 0.9 Eosinophils # (Auto) 1.5 Basophils # (Auto) 0.1 CBC Comment DIFF FINAL Differential Comment Prothrombin Time 11.2 Prothromb Time International 1.0 Ratio Activated Partial 22.8 Thromboplast Time Sodium Level 135 Potassium Level 4.1 Chloride Level 99 Carbon Dioxide Level 26.2 Anion Gap 10 Blood Urea Nitrogen 9 Creatinine 0.95 Estimat Glomerular Filtration 79 Rate Random Glucose 142 Lactic Acid Level 2.2 Calcium Level 8.5 Date/Time Procedure Status Source Growth 09/12/16 22:55 Aerobic Blood Culture Received Blood Peripheral Pending 09/12/16 22:55 Anaerobic Blood Culture Received Blood Peripheral Pending Result Diagram: 09/12/16 2255 09/12/16 2255 Assessment and Plan Assessment and Plan NEURO: Anxiety Insomnia Daily alcohol ingestion (2-3 beers/day) Initial sedation ED was challenging. Propofol/fentanyl/versed for sedation. Monitor for alcohol withdrawal RESP: Acute respiratory failure Acute allergic reactions with asthma exacerbation History of tobacco abuse Chest x-ray 09/13/16ET tube in satisfactory position. Lung collado are clear Solu-Medrol 60 g IV every 6 hours. Pepcid 20 mg IV every 12 hours. DuoNeb every 4 hours. Albuterol every 2 hours as needed. Continue Singulair Ventilator bundle. Daily SBT trial CV: Lactic acidemia Monitor hemodynamics Follow-up lactic acid GI: Nothing by mouth. OGT tube to low intermittent wall suction. FEN/RENAL: Collier in place. Monitor intake and output. Monitor electrolytes. Replace electrolytes as indicated per ICU electrolyte replacement protocol. ID: No leukocytosis or fever. We'll monitor for evidence of infection. HEME: Monitor CBC ENDO: Euglycemic PROPH: SCDs/Lovenox 40 mg subcutaneous daily for DVT prophylaxis. Pepcid for stress ulcer prophylaxis ACCESS: Peripheral IV providing adequate access at this time. Discussed with Dr. Escalante and with ED RN. Critical care time 60 minutes exclusive of separately billable procedures. Idania Lu MD Sep 13, 2016 00:33
[2016-09-13] MEDS ORDERED: MIDAZOLAM 100 MG/ML INJ 100 ML ONE (00:42)
[2016-09-13] MEDS ORDERED: MIDAZOLAM 100 MG/ML INJ 100 ML IV SCH ×2 (00:45→01:15)
[2016-09-13 01:03] LABS: LACTIC ACID GHOST NOT REPORTABLE
[2016-09-13] MEDS: MIDAZOLAM HCL 2 MG/2 ML VIAL IV PUSH PRN ×4 (01:08→02:50)
[2016-09-13] MEDS ORDERED: MISCELLANEOUS NURSING INFORMATION XX SCH (01:15)
[2016-09-13] MEDS ORDERED: RESP: ALBUTEROL 2.5 MG/3 ML NEB (PRN) INH (01:15)
[2016-09-13] MEDS ORDERED: PROPOFOL 1000 MG/100 ML INJ 100 ML IV SCH (01:15)
[2016-09-13] MEDS ORDERED: ACETAMINOPHEN 325 MG TAB PO PRN (01:15)
[2016-09-13] MEDS ORDERED: CHLORHEXIDINE GLUCONATE 2 % 1 PACK (2 CLOTHS) TOP PRN (01:15)
[2016-09-13 01:23] LABS: BLOOD GAS BASE EXCESS -1.1 mmol/L (-2-2); BLOOD GAS HCO3 24 mmol/L (22-26); BLOOD GAS METHEMOGLOBIN 0.9 % (0-2); BLOOD GAS O2 HGB SATURATION 98 % (90-100); BLOOD GAS OXYGEN CONTENT 17.1 Vol % (12.0-20.0); BLOOD GAS PCO2 43 mmHg (38-42); BLOOD GAS PO2 230 mmHg (61-120); BLOOD GAS TOTAL HGB 12.1 G/DL (12.0-16.0); TEMP CORR TO 98.6
[2016-09-13 01:24] LABS: CRITICAL VALUE NO; DRAW SITE RT RADIAL; FIO2 50 %; NUMBER OF ARTERIAL PUNCTURES 1; OXYGEN DEVICE VENTILATOR; STAT YES; ULNAR PULSE PRESENT; VENT SETTINGS AC/14/550/PEEP5
[2016-09-13] MEDS ORDERED: MIDAZOLAM HCL 2 MG/2 ML VIAL IV PUSH PRN (01:30)
[2016-09-13 02:00] LABS: INDIRECT BILIRUBIN 0.2 MG/DL (0.0-0.8); TOTAL BILIRUBIN ADULT 0.3 MG/DL (0.2-1.0)
[2016-09-13] MEDS ORDERED: ONDANSETRON HCL 4 MG/2 ML VIAL IV PRN (02:00)
[2016-09-13] MEDS: NS + KCL 20 MEQ INJ 1,000 ML IV SCH ×2 (02:01→10:00)
[2016-09-13] MEDS: ENOXAPARIN SODIUM 40 MG/0.4 ML SYRINGE SQ SCH (02:04)
[2016-09-13] MEDS: RESP: ALBUTEROL 2.5 MG/IPRATROPIUM 0.5 MG NEB (SCH) INH ×6 (03:15→23:31)
[2016-09-13] MEDS: CHLORHEXIDINE GLUCONATE 2 % 1 PACK (2 CLOTHS) TOP SCH (03:23)
[2016-09-13] MEDS: methylPREDNISolone SOD SUCC 125 MG/2 ML VIAL IV PUSH SCH ×4 (05:41→23:27)
[2016-09-13] MEDS: FAMOTIDINE 20 MG/2 ML VIAL IV PUSH SCH ×2 (08:25→21:31)
[2016-09-13] MEDS: CHLORHEXIDINE 0.12% (ORAL KIT) 15 ML CUP MT SCH ×2 (08:42→19:24)
[2016-09-13] MEDS: SODIUM CHLOR 0.9% 1000 ML INJ 1,000 ML IV SCH ×2 (11:15→23:28)
[2016-09-13 11:50] LABS: AUTOMATED NEUTROPHIL # 5.1 TH/MM3 (1.8-7.7); BASOPHIL % 0.1 % (0.0-2.0); HEMATOCRIT 35.2 % (39.0-51.0); HEMO FLAGS DIFF FINAL; LYMPH % 3.8 % (9.0-44.0); LYMPHOCYTE # 0.2 TH/MM3 (1.0-4.8); MEAN CELL VOLUME 97.5 FL (80.0-100.0); MEAN CORPUSCULAR HEMOGLOBIN 34.3 PG (27.0-34.0); MEAN CORPUSCULAR HGB CONC 35.2 % (32.0-36.0); NEUT % 93.1 % (16.0-70.0); PLATELET COUNT 222 TH/MM3 (150-450); RED BLOOD COUNT 3.61 MIL/MM3 (4.50-5.90); RED CELL DISTRIBUTION WIDTH 12.8 % (11.6-17.2); WHITE BLOOD COUNT 5.5 TH/MM3 (4.0-11.0)
[2016-09-13 12:21] LABS: BICARBONATE 25.6 MEQ/L (21.0-32.0); MAGNESIUM 2.1 MG/DL (1.5-2.5); POTASSIUM 5.3 MEQ/L (3.5-5.1)
[2016-09-13 12:37] LABS: BLOOD GAS BASE EXCESS -2.1 mmol/L (-2-2); BLOOD GAS CARBOXYHEMOGLOBIN 1.3 % (0-4); BLOOD GAS HCO3 22 mmol/L (22-26); BLOOD GAS O2 HGB SATURATION 97 % (90-100); BLOOD GAS OXYGEN CONTENT 17.3 Vol % (12.0-20.0); BLOOD GAS PCO2 40 mmHg (38-42); BLOOD GAS PO2 196 mmHg (61-120); BLOOD GAS TOTAL HGB 12.4 G/DL (12.0-16.0); CRITICAL VALUE NO; DRAW SITE RT RADIAL; FIO2 40 %; OXYGEN DEVICE VENTILATOR; TEMP CORR TO 98.6; VENT SETTINGS CPAP+5/PS5
[2016-09-13 12:38] LABS: NUMBER OF ARTERIAL PUNCTURES 1; STAT YES; ULNAR PULSE PRESENT
[2016-09-13] MEDS ORDERED: PILL SPLITTER OTHER PRN (15:15)
[2016-09-13] MEDS ORDERED: ALPRAZolam 0.25 MG TAB PO ONE (15:15)
[2016-09-13] MEDS: oxyCODONE/ACETAMINOPHEN 7.5 MG/325 MG TAB PO PRN ×2 (16:17→23:27)
--- NOTE | 2016-09-13 16:49 | EKG ---
Date Performed: 09/13/2016 Time Performed: 01:54:42 PTAGE: 66 years EKG: Sinus rhythm POSSIBLE LEFT ATRIAL ENLARGEMENT MARKED RIGHT AXIS DEVIATION LOW QRS VOLTAGE IN EXTREMITY LEADS CARLA ABEL CONSISTENT WITH PULMONARY DISEASE ABNORMAL ECG Compared to prior tracing no significant change PREVIOUS TRACING : 09/12/2016 22.28 DOCTOR: Andrea Lopez Interpretating Date/Time 09/13/2016 16:48:25
--- NOTE | 2016-09-13 16:49 | EKG ---
Date Performed: 09/12/2016 Time Performed: 22:28:20 PTAGE: 66 years EKG: SINUS TACHYCARDIA MARKED RIGHT AXIS DEVIATION LOW QRS VOLTAGE IN EXTREMITY LEADS PATTERN CO NSISTENT WITH PULMONARY DISEASE ABNORMAL ECG Compared to prior tracing no significant change PREVIOUS TRACING : 06/25/2016 00.24 DOCTOR: Andrea Lopez Interpretating Date/Time 09/13/2016 16:48:16
--- NOTE | 2016-09-13 16:49 | EKG ---
Date Performed: 09/13/2016 Time Performed: 07:10:10 PTAGE: 66 years EKG: Sinus rhythm POSSIBLE LEFT ATRIAL ENLARGEMENT BORDERLINE RIGHT AXIS DEVIATION LOW QRS VOLTAGE IN EXTREMITY LEADS PATTERN CONSISTENT WITH PULMONARY DISEASE ABNORMAL ECG Compared to prior tracing no significant gonzalez e PREVIOUS TRACING : 09/13/2016 01.54 DOCTOR: Andrea Lopez Interpretating Date/Time 09/13/2016 16:48:35
[2016-09-13] MEDS ORDERED: MORPHINE SULFATE 4 MG/ML INJ IV PUSH ONE (17:00)
[2016-09-13] MEDS: LORazepam 2 MG/ML VIAL IV PUSH PRN ×2 (17:01→21:31)
[2016-09-13] MEDS: CYCLOBENZAPRINE HCL 10 MG TAB PO SCH (17:01)
[2016-09-13] MEDS: MONTELUKAST SODIUM 10 MG TAB PO SCH (21:31)
[2016-09-13] MEDS: traZODone HCL 50 MG TAB PO SCH (21:31)
[2016-09-14] VITALS (14 sets, daily range): BP systolic 106–149; BP diastolic 62–89; PULSE 102–110; RESP 20–26; TEMP 98.4–98.7; O2SAT 94–97
[2016-09-14] MEDS: ENOXAPARIN SODIUM 40 MG/0.4 ML SYRINGE SQ SCH (01:09)
[2016-09-14] MEDS: CHLORHEXIDINE GLUCONATE 2 % 1 PACK (2 CLOTHS) TOP SCH (03:43)
[2016-09-14] MEDS: LORazepam 2 MG/ML VIAL IV PUSH PRN ×4 (03:43→21:00)
[2016-09-14] MEDS: RESP: ALBUTEROL 2.5 MG/IPRATROPIUM 0.5 MG NEB (SCH) INH ×6 (04:01→23:46)
[2016-09-14] MEDS: methylPREDNISolone SOD SUCC 125 MG/2 ML VIAL IV PUSH SCH ×2 (05:04→12:21)
[2016-09-14] MEDS: oxyCODONE/ACETAMINOPHEN 7.5 MG/325 MG TAB PO PRN ×3 (05:09→18:20)
[2016-09-14] MEDS: CHLORHEXIDINE 0.12% (ORAL KIT) 15 ML CUP MT SCH ×2 (08:00→20:00)
[2016-09-14] MEDS: CYCLOBENZAPRINE HCL 10 MG TAB PO SCH ×3 (08:16→18:19)
[2016-09-14] MEDS: FAMOTIDINE 20 MG/2 ML VIAL IV PUSH SCH ×2 (08:17→21:00)
[2016-09-14] MEDS ORDERED: ALPRAZolam 0.5 MG TAB PO ONE (09:30)
[2016-09-14 11:42] LABS: ALKALINE PHOSPHATASE 45 U/L (45-117); ALT (GPT) 29 U/L (12-78); ANION GAP 10 MEQ/L (5-15); AST (GOT) 40 U/L (15-37); BLOOD UREA NITROGEN 14 MG/DL (7-18); CHLORIDE 101 MEQ/L (98-107); GLOMERULAR FILTRATION RATE 82 ML/MIN (>89); MAGNESIUM 2.1 MG/DL (1.5-2.5); POTASSIUM 4.7 MEQ/L (3.5-5.1); SODIUM (NA) 135 MEQ/L (136-145); TOTAL BILIRUBIN ADULT 0.5 MG/DL (0.2-1.0)
[2016-09-14] MEDS: SODIUM CHLOR 0.9% 1000 ML INJ 1,000 ML IV SCH (12:21)
--- NOTE | 2016-09-14 13:45 | HHI.PR ---
Subjective Remarks Patient laying in bed, on o2 nc , tacycardic 120 stated he has been on xanax all his life , also stated he needs oxygen at home but he never got approved for it afebrile Objective Vitals Vital Signs Date Time Temp Pulse Resp B/P Pulse Ox O2 Delivery O2 Flow Rate FiO2 09/14/16 12:00 103 09/14/16 12:00 98.6 103 24 106/62 96 09/14/16 10:01 97 Nasal Cannula 2.00 09/14/16 10:00 103 09/14/16 08:00 98.6 103 24 113/79 96 09/14/16 08:00 103 09/14/16 06:00 103 09/14/16 04:00 109 09/14/16 04:00 98.4 109 26 108/77 95 09/14/16 02:00 102 09/14/16 00:00 98.7 108 20 117/71 96 09/14/16 00:00 108 09/13/16 22:00 116 09/13/16 20:26 94 Nasal Cannula 2.00 09/13/16 20:00 108 09/13/16 20:00 98.9 108 26 124/78 92 09/13/16 16:26 99.1 131 35 169/102 96 09/13/16 15:00 130 I/O 09/13/16 09/13/16 09/13/16 09/14/16 09/14/16 09/14/16 07:00 15:00 23:00 07:00 15:00 23:00 Intake Total 600 ml 1563 ml 1174 ml 813 ml Output Total 150 ml 300 ml 550 ml 925 ml Balance 450 ml 1263 ml 624 ml -112 ml Intake Oral 0 ml 480 ml 640 ml 240 ml IV Total 600 ml 1083 ml 534 ml 573 ml Output Urine Total 150 ml 300 ml 550 ml 925 ml Gastric Drainage Total 0 ml # Bowel Movements 0 Result Diagram: 09/13/16 1118 09/14/16 0905 Objective Remarks GENERAL: This is a frail cachectic pt in mild respiratory distress /tachycardia CARDIOVASCULAR: Regular tachy without murmurs, gallops, or rubs. RESPIRATORY: dec BS bilaterally. + wheezes b/l GASTROINTESTINAL: Abdomen soft, non-tender, nondistended. Normal active bowel sounds MUSCULOSKELETAL: Extremities without clubbing, cyanosis, or edema. NEURO: Alert & Oriented x4 to person, place, time, situation. Moves all ext x4 A/P Assessment and Plan 09/14: tacycardic , on o2 , will wean o2 , walk test in am , transfer to medsur room , xanax prn, thiamine pt asked for xanax , will verify with his pharmacist A/P: Anxiety Insomnia Daily alcohol ingestion (2-3 beers/day) Initial sedation ED was challenging. Propofol/fentanyl/versed for sedation. Monitor for alcohol withdrawal Acute respiratory failure Acute allergic reactions with asthma exacerbation History of tobacco abuse Chest x-ray 09/13/16ET tube in satisfactory position. Lung colaldo are clear Solu-Medrol 60 g IV every 6 hours. Pepcid 20 mg IV every 12 hours. DuoNeb every 4 hours. Albuterol every 2 hours as needed. Continue Singulair Ventilator bundle. Daily SBT trial Lactic acidemia> resolved Monitor hemodynamics Follow-up lactic acid OGT tube to low intermittent wall suction. Collier in place. Monitor intake and output. Monitor electrolytes. Replace electrolytes as indicated per ICU electrolyte replacement protocol. No leukocytosis or fever. We'll monitor for evidence of infection. PROPH: SCDs/Lovenox 40 mg subcutaneous daily for DVT prophylaxis. Pepcid for stress ulcer prophylaxis Meredith Barth MD Sep 14, 2016 13:45
[2016-09-14] MEDS: THIAMINE HCL 100 MG TAB PO SCH (14:00)
[2016-09-14 14:55] LABS: AUTOMATED NEUTROPHIL # 11.8 TH/MM3 (1.8-7.7); BASOPHIL % 0.2 % (0.0-2.0); HEMATOCRIT 36.7 % (39.0-51.0); HEMO FLAGS DIFF FINAL; LYMPH % 1.4 % (9.0-44.0); LYMPHOCYTE # 0.2 TH/MM3 (1.0-4.8); MEAN CELL VOLUME 97.8 FL (80.0-100.0); MEAN CORPUSCULAR HEMOGLOBIN 32.4 PG (27.0-34.0); MEAN CORPUSCULAR HGB CONC 33.1 % (32.0-36.0); NEUT % 91.4 % (16.0-70.0); PLATELET COUNT 204 TH/MM3 (150-450); RED BLOOD COUNT 3.75 MIL/MM3 (4.50-5.90); WHITE BLOOD COUNT 12.9 TH/MM3 (4.0-11.0)
[2016-09-14] MEDS: MONTELUKAST SODIUM 10 MG TAB PO SCH (21:00)
[2016-09-14] MEDS: traZODone HCL 50 MG TAB PO SCH (21:00)
[2016-09-14] MEDS: methylPREDNISolone SOD SUCC 40 MG/1 ML VIAL IV PUSH SCH (21:00)
[2016-09-15] VITALS (9 sets, daily range): BP systolic 138–168; BP diastolic 84–96; PULSE 98–116; RESP 20–24; TEMP 98.2–98.5; O2SAT 94–98
[2016-09-15] MEDS: SODIUM CHLOR 0.9% 1000 ML INJ 1,000 ML IV SCH (02:45)
[2016-09-15] MEDS: CHLORHEXIDINE GLUCONATE 2 % 1 PACK (2 CLOTHS) TOP SCH (04:00)
[2016-09-15] MEDS: RESP: ALBUTEROL 2.5 MG/IPRATROPIUM 0.5 MG NEB (SCH) INH ×4 (04:00→13:03)
[2016-09-15] MEDS: ENOXAPARIN SODIUM 40 MG/0.4 ML SYRINGE SQ SCH (04:56)
[2016-09-15] MEDS: methylPREDNISolone SOD SUCC 40 MG/1 ML VIAL IV PUSH SCH ×2 (04:57→12:53)
[2016-09-15] MEDS: oxyCODONE/ACETAMINOPHEN 7.5 MG/325 MG TAB PO PRN (05:36)
[2016-09-15] MEDS: BUDESONIDE-FORMOTEROL 160/4.5 MCG INHALER INH SCH ×2 (05:45→09:00)
[2016-09-15] MEDS: CHLORHEXIDINE 0.12% (ORAL KIT) 15 ML CUP MT SCH (08:00)
[2016-09-15] MEDS: LORazepam 2 MG/ML VIAL IV PUSH PRN (08:50)
[2016-09-15] MEDS: THIAMINE HCL 100 MG TAB PO SCH (08:50)
[2016-09-15] MEDS: CYCLOBENZAPRINE HCL 10 MG TAB PO SCH ×2 (08:50→12:53)
[2016-09-15] MEDS: FAMOTIDINE 20 MG/2 ML VIAL IV PUSH SCH (08:50)
[2016-09-15] MEDS ORDERED: PRED20 PO (09:34)
[2016-09-15] MEDS ORDERED: CHLO25CA2 PO (09:34)
--- NOTE | 2016-09-15 10:20 | RADRPT ---
EXAM DATE/TIME: 09/15/2016 09:58 [facility] COMPARISON: No previous studies available for comparison. INDICATIONS : Possible infiltrate. Short of breath. MEDICAL HISTORY : None. SURGICAL HISTORY : None. ENCOUNTER: Subsequent ACUITY: 3 days PAIN SCORE: 6/10 LOCATION: Bilateral chest FINDINGS: The lungs are hyperinflated but clear. There is very minimal blunting of the right and left costophr enic sulcus. The heart and pulmonary vascularity are normal. Sclerotic density is present in the rig ht scapula. CONCLUSION: Hyperinflation otherwise negative. Maxim Green MD FACR on September 15, 2016 at 10:16 Board Certified Radiologist. This report was verified electronically.
--- NOTE | 2016-09-15 14:12 | HHI.DS ---
Discharge Summary Admission Date Sep 13, 2016 at 00:27 Discharge Date: Sep 15, 2016 Admitting Diagnosis Anaphylaxis, COPD exacerbation (1) Acute exacerbation of COPD with asthma ICD Code: J44.1 (2) Anaphylactic reaction ICD Code: T78.2XXA (3) Hypertension ICD Code: I10 (4) Anxiety ICD Code: F41.9 Procedures Intubation extubation Brief History - From Admission 66-year-old male with past medical history of asthma, allergies who presents to [facility] [place] with acute onset of SOB, wheezing. He reports exposure to possums, which has triggered reactive airways in him in the past. He developed periorbital edema. He self-administered an Epipen. Upon E VAC arrival his sats were in the 50s on room air. He was placed on nonrebreather. Per E VAC he had severe wheezing and was administered additional epinephrine 0.3 mg IM,, DuoNeb, magnesium infusion, Solu-Medrol 125 mg IV. Despite this he arrived to the emergency department in extremis with severe shortness of breath requesting intubation. He had an anterior airway and was ultimately intubated with glide scope after initial direct laryngoscopy. There was no noted airway edema per Dr. Escalante. CBC/BMP: 09/14/16 1435 09/14/16 0905 Significant Findings Laboratory Tests Test 09/12/16 09/13/16 09/13/16 09/13/16 22:55 01:15 11:18 12:32 Red Blood Count 4.21 MIL/MM3 3.61 MIL/MM3 (4.50-5.90) (4.50-5.90) Monocytes (%) (Auto) 10.3 % (0.0-8.0) Eosinophils (%) (Auto) 16.3 % (0.0-4.0) Eosinophils # (Auto) 1.5 TH/MM3 (0-0.4) Activated Partial 22.8 SEC Thromboplast Time (24.3-30.1) Sodium Level 135 MEQ/L 135 MEQ/L (136-145) (136-145) Estimat Glomerular Filtration 79 ML/MIN (>89) Rate Random Glucose 142 MG/DL 150 MG/DL (74-106) (74-106) Lactic Acid Level 2.2 mmol/L (0.4-2.0) Arterial Blood pH 7.36 7.36 (7.380-7.420) (7.380-7.420) Arterial Blood Partial 43 mmHg (38-42) Pressure CO2 Arterial Blood Partial 230 mmHg 196 mmHg Pressure O2 (61-120) (61-120) Hemoglobin 12.4 GM/DL (13.0-17.0) Hematocrit 35.2 % (39.0-51.0) Mean Corpuscular Hemoglobin 34.3 PG (27.0-34.0) Neutrophils (%) (Auto) 93.1 % (16.0-70.0) Lymphocytes (%) (Auto) 3.8 % (9.0-44.0) Lymphocytes # (Auto) 0.2 TH/MM3 (1.0-4.8) Potassium Level 5.3 MEQ/L (3.5-5.1) Calcium Level 8.2 MG/DL (8.5-10.1) Blood Gas Base Excess -2.1 mmol/L (-2-2) Test 09/14/16 09/14/16 09:05 14:35 Sodium Level 135 MEQ/L (136-145) Estimat Glomerular Filtration 82 ML/MIN (>89) Rate Random Glucose 171 MG/DL (74-106) Phosphorus Level 2.2 MG/DL (2.5-4.9) Aspartate Amino Transf 40 U/L (15-37) (AST/SGOT) Total Protein 6.1 GM/DL (6.4-8.2) Folate GREATER THAN 20.0 NG/ML (3.1-17.5) White Blood Count 12.9 TH/MM3 (4.0-11.0) Red Blood Count 3.75 MIL/MM3 (4.50-5.90) Hemoglobin 12.2 GM/DL (13.0-17.0) Hematocrit 36.7 % (39.0-51.0) Neutrophils (%) (Auto) 91.4 % (16.0-70.0) Lymphocytes (%) (Auto) 1.4 % (9.0-44.0) Neutrophils # (Auto) 11.8 TH/MM3 (1.8-7.7) Lymphocytes # (Auto) 0.2 TH/MM3 (1.0-4.8) PE at Discharge GENERAL: This is a frail cachectic pt in mild respiratory distress /tachycardia CARDIOVASCULAR: Regular tachy without murmurs, gallops, or rubs. RESPIRATORY: dec BS bilaterally. + wheezes b/l GASTROINTESTINAL: Abdomen soft, non-tender, nondistended. Normal active bowel sounds MUSCULOSKELETAL: Extremities without clubbing, cyanosis, or edema. NEURO: Alert & Oriented x4 to person, place, time, situation. 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 Lung collado are clear Solu-Medrol 60 g IV every 6 hours. Pepcid 20 mg IV every 12 hours. DuoNeb every 4 hours. Albuterol every 2 hours as needed., Continue Singulair Ventilator bundle. Daily SBT trial, patient extubated he was on 3 L O2 He Had Lactic acidemia which resolved later, Daily alcohol ingestion (2-3 beers/day) We Monitor intake and output. Monitor electrolytes. Replace electrolytes as indicated per ICU electrolyte replacement protocol. Patient extubated Around discharge we weaned 02, O2 walking test has been done and showed saturation of 88 on exertion room air, still not qualify for home O2, patient doing well he was discharged home to follow up with his PCP Patient had a chronic history of Anxiety, Insomnia is on multiple benzo medications, I advised him to follow with his primary care physician and tape those down to avoid side effect, also patient was advised about alcohol abstinence he was given short prescription for Librium [id number] encounter performed with the patient on discharge day, as well as physical exam, summary of hospitalization course and postdischarge plan has been D/W the patient. D/W nurse D/W case investigator in case patient needed O2 at home or walking test Discharge medications reviewed and printed and signed, post discharge follow up visit with PCP and other specialist as well as Brief hospital course and discharge summary has been placed. Pt Condition on Discharge: Fair Discharge Disposition: Discharge Home Discharge Time: > 30 minutes Discharge Instructions DIET: Follow Instructions for: Heart Healthy Diet Activities you can perform: Weight Bearing as [place] New Medications: Chlordiazepoxide (Chlordiazepoxide) 25 Mg Cap 25 MG PO TID PRN Anxiety Days 15 Ref 0 CAP Prednisone (Prednisone) 20 Mg Tab 40 MG PO DAILY copd Days 10 Ref 0 TAB Continued Medications: Albuterol 18 GM Inh (Ventolin Hfa 18 GM Inh) 90 Mcg/Act Aer 2 PUFF INH Q4H PRN SHORTNESS OF BREATH #1 Ref 0 INHALER Benzonatate (Benzonatate) 200 Mg Cap 200 MG PO TID PRN COUGH Ref 0 CAP Fluticasone Nasal [place] (Fluticasone Nasal [place]) 50 Mcg/Act Naspr 100 MCG EACH NARE BID 50 mcg/spray Allergy Management #1 Ref 0 BOTTLE Fluticasone-Salmeterol Inh (Advair Diskus Inh) 250-50 Mcg/Blist Aer 1 PUFF INH BID Rinse mouth after use. #1 Ref 0 INHALER Montelukast (Montelukast) 10 Mg Tab 10 MG PO HS #30 Ref 0 TAB Trazodone (Trazodone) 150 Mg Tab 150 MG PO HS Control Depression #30 Ref 0 TAB Meredith Barth MD Sep 15, 2016 14:12
--- NOTE | 2016-09-15 21:26 | EKG ---
Date Performed: 09/13/2016 Time Performed: 19:35:35 PTAGE: 66 years EKG: SINUS TACHYCARDIA POSSIBLE LEFT ATRIAL ENLARGEMENT MARKED RIGHT AXIS DEVIATION LOW QRS VOLT AGE IN EXTREMITY LEADS POSSIBLE ANTERIOR MYOCARDIAL INFARCTION , OF INDETERMINATE AGE ABNORMAL ECG PREVIOUS TRACING : 09/13/2016 07.10 DOCTOR: Karina Tavarez Interpretating Date/Time 09/15/2016 21:22:43
== END 2016-09-15 14:15 | disposition home or self-care (01) | DRG 208 ==
LOC: NEPC 22:24 → NEDA 09-13 00:27 → HIMN 09-13 02:35
PROVIDERS: ADMIT Hospitalist; ATTEND Hospitalist
PROC: 0BH17EZ Insertion of Endotracheal Airway into Trachea, Via Natural or Artificial Opening (ICD-10-PCS; principal; 2016-09-13)
PROC: 5A1935Z Respiratory Ventilation, Less than 24 Consecutive Hours (ICD-10-PCS; 2016-09-13)
DX: J96.01 Acute respiratory failure with hypoxia (principal); R64 Cachexia; E87.2 Acidosis; J45.901 Unspecified asthma with (acute) exacerbation; F41.9 Anxiety disorder, unspecified; I10 Essential (primary) hypertension; G47.00 Insomnia, unspecified; Z87.891 Personal history of nicotine dependence; Z68.20 Body mass index [BMI] 20.0-20.9, adult
CPT/HCPCS: 31500; 36600; 71010; 71020; 80048; 80053; 80076; 82746; 82805; 83605; 83735; 84100; 85025; 85610; 85730; 87040; 93005; 94002; 94003; 94620; 94640; 94664; 96365; J0330; J1650; J2060; J2250; J2270; J2920; J2930; J3010; J3480; J7030